=== PATIENT | male | born 1960 | race Caucasian/White ===

== ENCOUNTER 2016-10-28 06:07 | Day surgery (SDC) | payer BC ==
[~2016-10-28 06:07] MED LIST: ACETAMINOPHEN 1,000 MG/100 ML BTL IV ONE
[2016-10-28] MEDS ORDERED: DEXAMETHASONE 4 MG/ML 1ML VIAL IVP ONE (11:37)
[2016-10-28] MEDS ORDERED: ROPIVACAINE HCL (NAROPIN) /PF 5MG/ML 20ML VIAL IV ONE ×2 (11:37→14:00)
[2016-10-28] MEDS ORDERED: LIDOCAINE 2% MDV (20MG/ML) 20ML VIAL IV ONE (14:00)
[2016-10-28] MEDS ORDERED: MIDAZOLAM HCL 2MG/2ML VIAL IV ONE (14:00)
[2016-10-28] MEDS ORDERED: PROPOFOL 10 MG/ML VIAL IV ONE (14:00)
[2016-10-28] MEDS ORDERED: FENTANYL PF 100MCG/2ML VIAL IV ONE (14:00)
--- NOTE | 2016-10-30 10:57 | Operative Note ---
DATE OF SURGERY: 10/28/2016 Surgeon: Mamadou Burch DO PREOPERATIVE DIAGNOSIS: Trigger thumb of the left thumb. POSTOPERATIVE DIAGNOSIS: Trigger thumb of the left thumb. OPERATION: Tenotomy A1 trip of the left thumb. DESCRIPTION OF PROCEDURE: This 56-year-old male was taken to the operating room and placed in the supine position on the operating room table. Assisted regional anesthesia was used for the operative procedure, and the left upper extremity was prepped with Hibiclens and draped in the usual sterile fashion. It was exsanguinated and the tourniquet inflated to 250 mmHg. An incision was made in the flexor crease of the MCP joint of the left thumb, and dissection was carried down through the skin and subcutaneous tissue. Superficial vessels were coagulated. Both the radial and ulnar digital nerves were easily identified, and the proximal edge of the A1 trip was also easily identified. It was then split from its proximal to its distal margin under direct vision and the FPL protected during this procedure. The tendon was then flexed and extended with a fusiform type bulbous appearance of the tendon being identified, which was not catching or locking after the sheath had been opened. The tendon was otherwise unremarkable. The wound was irrigated with lactated Ringer's solution and the skin closed with interrupted 6-0 nylon suture. Sterile dressings were applied, and the patient was taken to the recovery room in satisfactory condition. GROSS PATHOLOGY: This patient demonstrated a somewhat bulbous appearance of the FPL of the left thumb catching in the A1 trip, which was treated in the manner described above. CC: MD ANTHONY Jean-Baptiste
== END 2016-10-28 09:20 | disposition home or self-care (01) ==
LOC: SUR 06:07
PROVIDERS: ATTEND Orthopaedic Surgery
DX: M65.312 Trigger thumb, left thumb (principal)
CPT/HCPCS: 64721; 64450; 01810; J3010; J2795